=== PATIENT | male | born 1970 | race Hispanic/Latino ===

== ENCOUNTER 2017-02-17 06:09 | Emergency (ER) | payer MEDICAID ==
[2017-02-17 06:25] VITALS: BMI 22.4
[2017-02-17] MEDS ORDERED: Oxycodone/Acetaminophen 5/325 mg Tab PO STA (07:26)
[2017-02-17 07:45] VITALS: BP 129/81; PULSE 71; RESP 16; TEMP 97.9; O2SAT 99
--- NOTE | 2017-02-17 08:19 | ED PDOC ---
Arrival/HPI - General Chief Complaint: Dental Pain Time Seen by Provider: 02/17/17 07:08 Historian: Patient - History of Present Illness Narrative History of Present Illness (Text): 02/17/17 07:25 A 46 year old male presents to the emergency department complaining of a two week gistory of right lower dental pain. Patient reports he was seen by his dentist 4 days ago and placed on Clindamycin. Patient denies any fever or facial swelling but comes in for persistent pain. He denies any other complaints at this time. Time/Duration: > week (2 weeks) Symptom Onset: Sudden Symptom Course: Unchanged Quality: Other ("pain") Activities at Onset: Rest Context: Home Past Medical History - Provider Review Nursing Documentation Reviewed: Yes - Infectious Disease Hx of Infectious Diseases: None - Musculoskeletal/Rheumatological Hx Arthritis: Yes - Psychiatric Hx Anxiety: Yes Hx Bipolar Disorder: Yes Hx Depression: Yes Hx Substance Use: No - Anesthesia Hx Anesthesia: No Family/Social History - Physician Review Nursing Documentation Reviewed: Yes Family/Social History: Unknown Family HX Smoking Status: Current Some Days Smoker Hx Alcohol Use: Yes Frequency of alcohol use: Socially Hx Substance Use: No Allergies/Home Meds Allergies/Adverse Reactions: Allergies Penicillins Allergy (Verified 02/17/17 06:25) ITCHING Review of Systems - Physician Review All systems were reviewed & negative as marked: Yes - Review of Systems Constitutional: absent: Fevers, Other (facial swelling) Eyes: absent: Vision Changes ENT: Other (right lower dental pain). absent: TMJ Pain, Rhinorrhea Respiratory: absent: SOB, Cough Cardiovascular: absent: Chest Pain Gastrointestinal: absent: Abdominal Pain Genitourinary Male: absent: Dysuria Musculoskeletal: absent: Back Pain, Neck Pain Skin: absent: Rash Neurological: absent: Headache, Dizziness Endocrine: absent: Polyuria Psychiatric: absent: Depression Physical Exam - Physical Exam Narrative Physical Exam (Text): Head: Atraumatic. Normocephalic. No facial edema or erythema. Eyes: PERRL. EOMI. Conjunctivae are not pale. ENT: Mucous membranes are moist and intact. Oropharynx is clear and symmetric. Right lower molar dental caries with out erythema or edema. Neck: Supple. Full ROM. No JVD. No lymphadenopathy. No meningeal signs. Cardiovascular: Regular rate. Regular rhythm. No murmurs, rubs, or gallops. Distal pulses are 2+ and symmetric. Pulmonary/Chest: No evidence of respiratory distress. Clear to auscultation bilaterally. No wheezing, rales or rhonchi. Abdominal: Soft and non-distended. There is no tenderness. No rebound, guarding, or rigidity. No organomegaly. Good bowel sounds. Back: No CVA tenderness. Extremities: No edema. No cyanosis. No clubbing. Full range of motion in all extremities. No calf tenderness. Skin: Skin is warm and dry. No petechiae. No purpura. Neurological: Alert, awake, and oriented to person, place, time, and situation. Normal speech. Cranial nerves intact with no facial droop. Psychiatric: Good eye contact. Normal interaction, affect, and behavior. Vital Signs Reviewed: Yes Vital Signs Temp Pulse Resp BP Pulse Ox 02/17/17 07:44 97.9 F 71 16 129/81 99 02/17/17 06:38 98.2 F 82 18 130/84 98 Temperature: Afebrile Blood Pressure: Normal Pulse: Regular Respiratory Rate: Normal Appearance: Positive for: Well-Appearing, Non-Toxic, Comfortable Pain Distress: None Mental Status: Positive for: Alert and Oriented X 3 Medical Decision Making ED Course and Treatment: 02/17/17 07:25 Impression: A 46 year old male with dental pain. Patient has no facial edema/erythema. Examination reveals right lower molar dental caries. Differential Diagnosis include but are not limited to: Dental caries Plan: Patient will be give percocet for the pain and reevaluate. Will discharge patient home and instruct to follow up with dentist. Progress Notes: Patient will need to follow up with dentist. He has no clinical signs of an abscess and is afebrile. On re-evaluation, the patient feels better and is in no acute distress. I have discussed the results and plan with the patient, who expresses understanding. Patient in agreement with plan to discharged home with prescription for Percocet. Risk on potential for addiction to pain medication discussed with the patient. Patient is stable for discharge. Patient was instructed to follow up with Dentist in 1-2 days or return if symptoms worsen or new concerning symptoms arise. - Medication Orders Current Medication Orders: Discontinued Medications Oxycodone/Acetaminophen (Percocet 5/325 Mg Tab) 1 tab PO STAT STA Stop: 02/17/17 07:27 Last Admin: 02/17/17 07:48 Dose: 1 TAB - Scribe Statement The provider has reviewed the documentation as recorded by the Claude Valle Provider Claude Attestation: All medical record entries made by the Kayibe were at my direction and personally dictated by me. I have reviewed the chart and agree that the record accurately reflects my personal performance of the history, physical exam, medical decision making, and the department course for this patient. I have also personally directed, reviewed, and agree with the discharge instructions and disposition. Disposition/Present on Arrival - Present on Arrival Any Indicators Present on Arrival: No History of DVT/PE: No History of Uncontrolled Diabetes: No Urinary Catheter: No History of Decub. Ulcer: No History Surgical Site Infection Following: None - Disposition Have Diagnosis and Disposition been Completed?: Yes Diagnosis: Pain, dental Disposition: HOME/ ROUTINE Disposition Time: 07:30 Condition: GOOD Discharge Instructions (ExitCare): Toothache (ED) Additional Instructions: Follow-up with dentist and oral surgeon as directed. For any fevers, swelling, sore throat, difficulty swallowing, neck pain, headaches, persistent or worsening of symptoms, get rechecked. Continue antibiotics as directed. Use Percocet with caution with your other medications, as may cause sleepiness or drowsiness. Oral [facility] at [facility]. Prescriptions: oxyCODONE/Acetaminophen [Percocet 5/325 mg Tab] 1 ea PO Q6 PRN #10 tab PRN Reason: severe pain Referrals: Melvin Hannah DMD [Staff Provider] - Follow up with primary
== END 2017-02-17 08:31 | disposition home or self-care (01) ==
LOC: ED 06:09
DX: K08.89 Other specified disorders of teeth and supporting structures (principal); F17.210 Nicotine dependence, cigarettes, uncomplicated

== ENCOUNTER 2017-03-07 01:54 | Emergency (ER) | payer MEDICAID ==
[2017-03-07 01:54] VITALS: BMI 22.4
== END 2017-03-07 02:16 | disposition left against medical advice (07) ==
LOC: ED 01:54
DX: Z02.89 Encounter for other administrative examinations (principal)